=== PATIENT | male | born 1935 | race Caucasian/White ===

== ENCOUNTER → 2021-03-26 | Emergency (ER) | payer OTHER ==
[~2021-03-26] VITALS: Ht 175.3 cm; Wt 74.8 kg
[~2021-03-26] MED LIST: ACETAMINOPHEN650 M2 PO; GLIPIZIDE XL2.5 MG; GLUMETZA1000 MG; OMEPRAZOLE MAGN20 MG; OSEL75CA PO
== END | disposition home or self-care (01) ==
LOC: ER 21:11
DX: S00.83XA Contusion of other part of head, initial encounter (principal); W18.39XA Other fall on same level, initial encounter; Y93.89 Activity, other specified; Y92.098 Other place in other non-institutional residence as the place of occurrence of the external cause; Y99.8 Other external cause status; R55 Syncope and collapse; J11.1 Influenza due to unidentified influenza virus with other respiratory manifestations; Z11.52 Encounter for screening for COVID-19